=== PATIENT | male | born 1960 | race Hispanic/Latino ===

== ENCOUNTER 2018-08-24 09:05 | Day surgery (SDC) | payer OTHER ==
[2018-08-21 12:28] LABS: BASOPHILS % (AUTO) 1.5 % (0.0-5.0); EOSINOPHILS % (AUTO) 3.8 % (0.0-8.0); HEMATOCRIT 45.1 % (42-54); LYMPHOCYTES % (AUTO) 27.8 % (21.0-51.0); MEAN CORPUSCULAR HEMOGLOBIN 29.9 pg (27.0-33.0); MEAN CORPUSCULAR HGB CONC 33.2 g/dL (32.0-36.0); MEAN CORPUSCULAR VOLUME 89.9 fL (79-99); NEUTROPHILS % (AUTO) 62.9 % (40.0-77.0); NUCLEATED RED BLOOD CELLS 0.1 % (0.0-0.19); PLATELET COUNT (AUTO) 264 K/uL (130-400); RED BLOOD CELL COUNT(AUTO) 5.02 MIL/uL (4.50-6.20); RED CELL DISTRIBUTION WIDTH 12.5 % (11.0-15.5); WHITE BLOOD COUNT (AUTO) 7.9 K/uL (4.8-10.8)
[2018-08-21 12:34] VITALS: BP 150/79
[2018-08-21 12:35] LABS: CREATININE 0.9 mg/dL (0.5-1.5); POTASSIUM 4.4 mmol/L (3.5-5.1)
--- NOTE | 2018-08-21 12:42 | NUR ---
EKG MESSAGE LEFT ON DR GRIMM CELL PHONE TO REPORT ABNORMAL EKG, PENDING CALL BACK
--- NOTE | 2018-08-21 13:43 | NUR ---
EKG RECEIVED CALL BACK FROM DR. GRIMM HE WANTS MEDICAL CLEARANCE. INFORMED DR. LOUISE, MESSAGE LEFT WITH [place] HIS NURSE. SHE WILL SPEAK WITH DR LOUISE AND PATIENT
--- NOTE | 2018-08-21 14:25 | NUR ---
clearance As Per Dr. Valdez proceed with surgery will be done sedation, Dr. Salinas made aware , Melissa will fax new order with changes once dr valdez writes the new order for sx do be done with sedation
[2018-08-24] VITALS (11 sets, daily range): BP systolic 104–154; BP diastolic 64–82
[~2018-08-24] VITALS: Ht 177.8 cm; Wt 81.0 kg
[2018-08-24] MEDS ORDERED: SODIUM CHLORIDE 0.9% 1000ML 1,000 ML IV ONE (09:42)
[2018-08-24] MEDS: CEFAZOLIN SODIUM 1 GM VIAL ONE ×2 (09:45→09:50)
[2018-08-24] MEDS ORDERED: LIDOCAINE HCL 1% 20 ML VIAL ONE (09:48)
[2018-08-24] MEDS ORDERED: BUPIVACAINE/PF 0.25% 30ML VIAL IJ ONE (09:48)
[2018-08-24] MEDS ORDERED: PROPOFOL 10 MG/ML 20ML VIAL IV ONE (10:02)
[2018-08-24] MEDS ORDERED: MIDAZOLAM HCL 1 MG/ML 2ML VIAL ONE (10:02)
[2018-08-24] MEDS ORDERED: DEXAMETHASONE SOD PHOSPHATE 10MG/ML 1ML VIAL ONE (10:02)
[2018-08-24] MEDS ORDERED: LIDOCAINE PF 2% 5ML ABBOJECT ONE (10:02)
[2018-08-24] MEDS ORDERED: FENTANYL CITRATE PF 50 MCG/1 ML 2ML VIAL ONE (10:03)
[2018-08-24] MEDS ORDERED: ONDANSETRON HCL 4 MG/2 ML VIAL ONE (10:03)
[2018-08-24] MEDS ORDERED: BACITRACIN 28.4 GM OINT TP ONE (10:20)
--- NOTE | 2018-08-24 10:50 | NUR ---
5 UNITS OF REGULAR INSULIN GIVEN AT 1050 FOR BS OF [address] AARON
[2018-08-24] MEDS ORDERED: INSULIN HUMULIN R 100 UNIT/ML 3ML ONE (10:51)
[2018-08-24] MEDS ORDERED: GLYB5TAB8 PO (10:54)
[2018-08-24] MEDS ORDERED: SITA1TAB6 PO (10:54)
[2018-08-24] MEDS ORDERED: ASPI-555 PO (10:54)
[2018-08-24] MEDS ORDERED: ATOR20TA65 PO (10:54)
--- NOTE | 2018-08-24 11:05 | NUR ---
POST OP RECEIVED PT FROM PACU, S/P LYSIS OF PENILE ADHESION, DRESSING TO PENIS DRY AND INTACT, PT AWAKE AND ALERT , DENIES ANY PAIN OR DISCOMFORTS. VS STABLE ON ARRIVAL.
--- NOTE | 2018-08-24 11:32 | NUR ---
[facility] DC INSTRUCTIONS GIVEN TO PT/PT SPOUSE IN [place] WITH RX, INSTRUCTED NO WORK OR STRENUOUS ACTIVITY IN 2 DAYS, TO APPLY BACITRACIN OINTMENT TO PENIS INCISION TWICE A DAY FOR 10 DAYS, TO PULL [place] TO PENIS BACK 2 X A DAY TO PREVENT SKIN FROM STICKING, PT / SPOUSE VERBALIZED UNDERSTANDING. INSTRUCTED TO F/U WITH DR. LOUISE ON SEP 04 2018 , BOTH VERBALIZED UNDERSTANDING. PT GIVEN BACITRACIN OINTMENT PACKETS TO USE AT HOME. PIV REMOVED.
--- NOTE | 2018-08-24 11:35 | NUR ---
DC PT DC HOME VIA WC , NO DISTRESS ACCOMPANIED BY SPOUSE.
== END 2018-08-24 11:35 | disposition home or self-care (01) ==
LOC: DAH 09:05
PROVIDERS: ATTEND Urology
DX: N47.5 Adhesions of prepuce and glans penis (principal); I10 Essential (primary) hypertension; E11.9 Type 2 diabetes mellitus without complications; M19.90 Unspecified osteoarthritis, unspecified site; Z79.899 Other long term (current) drug therapy; Z98.890 Other specified postprocedural states; Z79.82 Long term (current) use of aspirin
CPT/HCPCS: 36415; 54162; 80048; 82948 ×2; 85025; 93005; A4600; A4606; J0690; J1100; J1815; J2001; J2250; J2405; J2704; J3010; J3490; J7030